=== PATIENT | female | born 1970 | race Hispanic/Latino ===

== ENCOUNTER 2022-01-23 14:26 | Outpatient (CLI) | payer BC | END 2022-01-23 14:27 | disposition home or self-care (01) | LOC: CSHULT 14:26 | PROVIDERS: ATTEND Internal Medicine Gastroenterology | DX: R10.13 Epigastric pain (principal); K92.1 Melena; E11.9 Type 2 diabetes mellitus without complications; K76.0 Fatty (change of) liver, not elsewhere classified | CPT/HCPCS: 76700 ==